=== PATIENT | female | born 1995 | race Caucasian/White ===

== ENCOUNTER 2020-04-20 11:05 | Outpatient (REF) | payer OTHER, SELFPAY | END 2020-04-20 11:06 | disposition home or self-care (01) | LOC: HO.LAB 11:05 | PROVIDERS: PCP Internal Medicine; Visit Provider Internal Medicine | DX: Z20.828 Contact with and (suspected) exposure to other viral communicable diseases (principal) | CPT/HCPCS: 87635 ==

== ENCOUNTER 2021-05-01 08:48 | Outpatient (REF) | payer OTHER, SELFPAY ==
[2021-05-01 10:17] LABS: Anion Gap 12 (12-20); Blood Urea Nitrogen 10 mg/dL (9-16); Calcium 9.9 mg/dL (8.4-10.2); Carbon Dioxide 27 mmol/L (22-29); Chloride 107 mmol/L (96-108); Estimated Glomerular Filt Rate > 60; Glucose Random 82 mg/dL (60-115); Potassium 4.7 mmol/L (3.3-5.1); Sodium 141 mmol/L (135-145)
[2021-05-01 10:41] LABS: Vitamin B12 566 pg/mL (200-900)
[2021-05-01 10:42] LABS: TSH reflex Free T4 0.75 uIU/mL (0.32-4.0)
[2021-05-02 12:42] LABS: DHEA Sulfate 124 mcg/dL (18-391)
[2021-05-05 16:37] LABS: Testosterone, Free 1.4 pg/mL (0.1-6.4); Testosterone, Total 39 ng/dL (2-45)
== END 2021-05-01 08:49 | disposition home or self-care (01) ==
LOC: HO.LAB 08:48
PROVIDERS: PCP Internal Medicine; Visit Provider Internal Medicine
DX: L65.9 Nonscarring hair loss, unspecified (principal); L70.0 Acne vulgaris
CPT/HCPCS: 36415; 80048; 82306; 82607; 82627; 84402; 84403; 84443

== ENCOUNTER 2021-11-08 08:13 | Outpatient (REF) | payer OTHER, SELFPAY ==
--- NOTE | ~2021-11-08 | XR_ITS ---
EXAMINATION: XR WRIST, RIGHT CLINICAL INFORMATION: Right wrist pain COMPARISON: None TECHNIQUE: Four views of the right wrist. FINDINGS: No fracture or dislocation. The carpal rows are well aligned. Joint spaces are maintained. The soft tissues are unremarkable. XR/XR wrist RT min 3V IMPRESSION: Normal right wrist.
== END 2021-11-08 08:14 | disposition home or self-care (01) ==
LOC: HO.XRAY 08:13
PROVIDERS: Absent Provider Internal Medicine; PCP Internal Medicine; Visit Provider Emergency Medicine
DX: M25.531 Pain in right wrist (principal)
CPT/HCPCS: 73110

== ENCOUNTER 2022-08-04 01:40 | Emergency (ER) | payer OTHER, SELFPAY ==
[2022-08-04 01:45] VITALS: BP 131/78; PULSE 81; RESP 16; TEMP 36.8; O2SAT 98; BMI 23.5
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
== END 2022-08-04 02:27 | disposition home or self-care (01) ==
PROVIDERS: Emergency Provider Internal Medicine; PCP Internal Medicine
DX: Z04.2 Encounter for examination and observation following work accident (principal); Z77.21 Contact with and (suspected) exposure to potentially hazardous body fluids
CPT/HCPCS: 99282; 99283

== ENCOUNTER 2022-08-09 13:17 | Outpatient (REF) | payer SELFPAY ==
--- NOTE | ~2022-08-09 | US_ITS ---
EXAMINATION: US DIAGNOSTIC ULTRASOUND BREAST, LEFT CLINICAL INFORMATION: 27-year-old with recent small superficial palpable nodule anterior 12:00 left breast. No prior breast imaging. COMPARISON: None. TECHNIQUE: Ultrasound left breast is performed using grayscale imaging and color Doppler without and with harmonics. Patient is able to point to the area of clinical concern at time of imaging. FINDINGS: The palpable finding anterior 12:00 position corresponds to a tiny 0.2 cm hypoechoic circumscribed intradermal lesion. There is no surrounding hyperemia. No subdermal extension. There is no other cystic or solid mass. No duct ectasia. No edema tracking in soft tissue planes. Results are discussed with the patient at time of visit. US/US breast LT limited IMPRESSION: 1. Tiny intradermal lesion 0.2 cm corresponding to palpable finding, likely sebaceous cyst. 2. No subdermal extension. No hyperemia. ASSESSMENT: BI-RADS 2: Benign RECOMMENDATION: Patient should be managed based on the clinical impression as needed. If persistent increasing, further evaluation may be considered with surgical consult. Decision to proceed with biopsy should be based on clinical grounds and degree of clinical concern. This patient's information was entered into a reminder system with a target due date for their next mammogram.
== END 2022-08-09 13:18 | disposition home or self-care (01) ==
LOC: HO.MAMMO 13:17
PROVIDERS: PCP Internal Medicine; Visit Provider Family Medicine
DX: N63.25 Unspecified lump in the left breast, overlapping quadrants (principal)
CPT/HCPCS: 76642

== ENCOUNTER 2023-03-16 01:44 | Emergency (ER) | payer OTHER, SELFPAY ==
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
[2023-03-16 01:50] VITALS: BP 124/80; BP 132/78; PULSE 82; PULSE 86; RESP 16; TEMP 36.9; O2SAT 100; O2SAT 99; BMI 25.1
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
[2023-03-16] MEDS: Acetaminophen 325 MG TABLET 975 MG PO (02:48)
[2023-03-16 04:13] VITALS: BP 132/76; PULSE 70; RESP 16; TEMP 36.9; O2SAT 100
[2023-03-16] MEDS: Bacitracin Oint 0.9 GM PACKET 1 APPL TOPICAL (05:14)
[2023-03-16] MEDS: Cyclobenzaprine HCl 10 MG TABLET PO (05:14)
--- NOTE | 2023-03-16 05:22 | PC.NURSE ---
Bacitracin applied to left upper arm and wrapped, instructions given on dressing change.
== END 2023-03-16 05:25 | disposition home or self-care (01) ==
PROVIDERS: Emergency Provider Emergency Medicine; PCP Internal Medicine
DX: S86.112A Strain of other muscle(s) and tendon(s) of posterior muscle group at lower leg level, left leg, initial encounter (principal); S50.312A Abrasion of left elbow, initial encounter; V49.49XA Driver injured in collision with other motor vehicles in traffic accident, initial encounter; T22.222A Burn of second degree of left elbow, initial encounter; W22.11XA Striking against or struck by driver side automobile airbag, initial encounter; Y93.89 Activity, other specified; Y92.488 Other paved roadways as the place of occurrence of the external cause; Y99.0 Civilian activity done for income or pay
CPT/HCPCS: 16000; 70450; 72125; 73070; 73560; 99284

== ENCOUNTER → 2023-03-20 08:47 | Outpatient (BNVA) | payer OTHER, SELFPAY | PROVIDERS: PCP Internal Medicine; Visit Provider Physician Assistant | DX: S50.02XA Contusion of left elbow, initial encounter (principal); S51.012A Laceration without foreign body of left elbow, initial encounter; W22.10XA Striking against or struck by unspecified automobile airbag, initial encounter; V98.8XXA Other specified transport accidents, initial encounter; M54.50 Low back pain, unspecified | CPT/HCPCS: 99203 ==

== ENCOUNTER → 2023-03-27 09:24 | Outpatient (BNVA) | payer OTHER, SELFPAY | PROVIDERS: PCP Internal Medicine; Visit Provider Physician Assistant | DX: S50.02XA Contusion of left elbow, initial encounter (principal); S51.012A Laceration without foreign body of left elbow, initial encounter; W22.10XA Striking against or struck by unspecified automobile airbag, initial encounter; V98.8XXA Other specified transport accidents, initial encounter; M54.50 Low back pain, unspecified | CPT/HCPCS: 99213 ==

== ENCOUNTER 2023-05-31 03:41 | Emergency (ER) | payer OTHER, SELFPAY ==
--- NOTE | ~2023-05-31 | XR_ITS ---
EXAMINATION: XR WRIST, RIGHT CLINICAL INFORMATION: Wrist pain COMPARISON: None available. TECHNIQUE: PA, lateral, and oblique views of the right wrist. FINDINGS: No acute fracture or dislocation. XR/XR wrist RT min 3V IMPRESSION: No acute fracture or dislocation right wrist.
[2023-05-31 04:00] VITALS: BP 132/75; PULSE 85; RESP 16; TEMP 37.2; O2SAT 99; BMI 24.6
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
[2023-05-31 07:42] VITALS: BP 139/83; PULSE 84; RESP 18; O2SAT 98
--- NOTE | 2023-05-31 07:42 | PC.NURSE ---
this rn applied wrist immobilize for pt right wrist, pt tolerated procedure well and educated on use.
== END 2023-05-31 07:43 | disposition home or self-care (01) ==
PROVIDERS: Emergency Provider Emergency Medicine
DX: S63.501A Unspecified sprain of right wrist, initial encounter (principal); X58.XXXA Exposure to other specified factors, initial encounter; Y93.9 Activity, unspecified; Y92.9 Unspecified place or not applicable; Y99.0 Civilian activity done for income or pay; Z79.899 Other long term (current) drug therapy
CPT/HCPCS: 29125; 73110; 99283; 99284

== ENCOUNTER → 2023-05-31 09:31 | Outpatient (BNVA) | payer OTHER, SELFPAY | PROVIDERS: Visit Provider Internal Medicine | DX: S63.591A Other specified sprain of right wrist, initial encounter (principal); Y04.0XXA Assault by unarmed brawl or fight, initial encounter | CPT/HCPCS: 99202 ==

== ENCOUNTER → 2023-09-03 09:21 | Outpatient (BNVA) | payer OTHER, SELFPAY | PROVIDERS: Visit Provider Physician Assistant Medical | DX: D17.22 Benign lipomatous neoplasm of skin and subcutaneous tissue of left arm (principal); S50.02XD Contusion of left elbow, subsequent encounter; V89.0XXD Person injured in unspecified motor-vehicle accident, nontraffic, subsequent encounter; W22.10XD Striking against or struck by unspecified automobile airbag, subsequent encounter | CPT/HCPCS: 99203 ==

== ENCOUNTER 2023-09-11 10:09 | Outpatient (REF) | payer OTHER, SELFPAY ==
[2023-09-11 10:27] LABS: MANUAL DIFF FLAG NO
[2023-09-11 10:59] LABS: Basophils Percent Auto 0.3 % (0-2); Eosinophils Percent Auto 0.4 % (0-4); Hematocrit 39.9 % (37.0-47.0); Imm Gran Abs Auto 0.02 X10*3/uL (0.00-0.03); Imm Gran Pct Auto 0.3 % (0.0-0.4); Lymphocytes Absolute Auto 3.7 X10*3/uL (1.2-4.9); Lymphocytes Percent Auto 54.2 % (20-40); Mean Corpuscular HGB Conc 35.1 g/dl (31.0-35.0); Mean Corpuscular Hemoglobin 29.8 pg (27.0-33.0); Mean Corpuscular Volume 84.9 fL (80.0-98.0); Mean Platelet Volume 8.9 fL (9.4-12.3); Monocytes Absolute Auto 0.5 X10*3/uL (0.1-1.2); Neutrophils Absolute Auto 2.5 x10*3/uL (2.0-8.3); Neutrophils Percent Auto 37.8 % (45-73); Platelet Count 326 X10*3/uL (160-400); Red Cell Distribution Width 12.1 % (11.0-16.0); White Blood Count 6.7 X10*3/uL (4.8-10.8)
[2023-09-11 12:01] LABS: HBS Num1 24.98 mIU/mL (0-7.99); HBc Num1 0.08 S/CO (0.00-0.79); HBsAGNum1 0.38 S/CO (0.00-0.99); Hepatitis A Antibody IgM 0.21 Index (0-0.79); Hepatitis B Core Antibody Nonreactive (Nonreactive); Hepatitis B Surface Antigen Negative (Negative); ~Hepatitis A Antibody IgM Nonreactive (Nonreactive); ~Hepatitis B Surface Antibody REACTIVE (Nonreactive); ~Hepatitis C Antibody Nonreactive (Nonreactive)
[2023-09-11 12:06] LABS: Alanine Aminotransferase 17 U/L (0-31); Albumin Level 4.2 g/dL (3.5-5.0); Alkaline Phosphatase 86 U/L (39-117); Anion Gap 13 (12-20); Aspartate Amino Transferase 19 U/L (5-31); Bilirubin Total 0.5 mg/dL (0.0-1.0); Blood Urea Nitrogen 12 mg/dL (9-16); Calcium 9.8 mg/dL (8.4-10.2); Carbon Dioxide 25 mmol/L (22-29); Chloride 106 mmol/L (96-108); Cholesterol 209 mg/dL (<200); Estimated Glomerular Filt Rate > 60; Glucose Random 90 mg/dL (60-115); HDL Cholesterol 83 mg/dL (>40); LDL Cholesterol Calculated 107 mg/dL (<100); Potassium 3.9 mmol/L (3.3-5.1); Sodium 140 mmol/L (135-145); TSH reflex Free T4 0.62 uIU/mL (0.32-4.0); Total Protein 7.6 g/dL (6.5-8.0); Triglycerides 96 mg/dL (<150)
[2023-09-11 12:36] LABS: Reflex LDLD? No
[2023-09-12 22:54] LABS: Rubella IgG Antibody 2.14 Index; Rubeola IgG (Measles) <13.50 AU/mL
[2023-09-14 15:42] LABS: TS Negative Control Passed; TS Panel A 1; TS Panel B 0; TS Positive Control Passed; TSpotTB Negative (Negative)
== END 2023-09-11 10:10 | disposition home or self-care (01) ==
LOC: HO.LAB 10:09
PROVIDERS: PCP Internal Medicine; Visit Provider Internal Medicine
DX: Z00.00 Encounter for general adult medical examination without abnormal findings (principal); Z13.6 Encounter for screening for cardiovascular disorders; H54.7 Unspecified visual loss
CPT/HCPCS: 36415; 80053; 80061; 84443; 85025; 86481; 86704; 86706; 86709; 86735; 86762; 86765; 86803; 87340

== ENCOUNTER → 2023-09-11 10:38 | Outpatient (BNVA) | payer OTHER, SELFPAY | PROVIDERS: PCP Internal Medicine; Visit Provider Physician Assistant Medical | DX: S50.12XA Contusion of left forearm, initial encounter (principal); Y35.391A Legal intervention involving other blunt objects, law enforcement official injured, initial encounter | CPT/HCPCS: 99213; 99215 ==

== ENCOUNTER 2023-09-23 09:21 | Outpatient (AMB) | payer OTHER, SELFPAY ==
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
[2023-09-23 09:32] VITALS: BP 130/58; PULSE 76; BMI 23.5
== END 2023-09-23 09:43 | disposition home or self-care (01) ==
PROVIDERS: PCP Internal Medicine; Referring Provider Physician Assistant Medical; Visit Provider Surgery
DX: D17.9 Benign lipomatous neoplasm, unspecified (principal)
CPT/HCPCS: 99204

== ENCOUNTER → 2023-09-23 09:21 | Outpatient (BNVA) | payer OTHER, SELFPAY | PROVIDERS: PCP Internal Medicine; Referring Provider Internal Medicine; Visit Provider Surgery | DX: D17.22 Benign lipomatous neoplasm of skin and subcutaneous tissue of left arm (principal) | CPT/HCPCS: 99202 ==

== ENCOUNTER → 2023-09-26 10:48 | Outpatient (BNVA) | payer OTHER, SELFPAY | PROVIDERS: PCP Internal Medicine; Visit Provider Physician Assistant Medical | DX: D17.22 Benign lipomatous neoplasm of skin and subcutaneous tissue of left arm (principal) | CPT/HCPCS: 99213 ==

== ENCOUNTER 2024-07-27 | Outpatient (REF) | payer OTHER, SELFPAY ==
--- OUTSIDE RECORDS SUMMARY | 2024-08-21 14:08 | XMS_ITS | Clinical Summary ---
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 Encounters Date Type Department Care Team Description 07/29/2024 Telephone [facility] [address] [place] [phone] Cierra Molina, RN Results 07/27/2024 1:15 PM EST Procedure Visit [facility] 230 [place] [address] Jovanna Aguilar MD Encounter for cervical Pap smear with pelvic exam (Primary Dx); Dyspareunia in female; Encounter for preventive health examination 07/27/2024 Orders Only [facility] [address] [place] [address] Jovanna Aguilar MD 07/27/2024 Travel 07/09/2024 Telephone [facility] 230 [place] [address] Jovanna Aguilar MD August recall from Last 3 Months Immunizations Name Administration [...] Description 09/09/2024 10:30 AM EST Office Visit [facility] [address] [place] [address] Jovanna Aguilar MD [address] [place] [address] [phone] 09/22/2024 12:00 PM EDT Telemedicine [facility] [address] [place] [address] Jovanna Aguilar MD [address] [place] [address] Health Maintenance Due Date Last Done Comments [...] Procedure Name Priority Date/Time Associated Diagnosis Comments US PELVIS TRANSVAGINAL Routine 08/14/2024 11:45 AM EST Dyspareunia in female PAP SMEAR Routine 07/27/2024 2:28 PM EST [...] Recently Relevant to Health Maintenance Results * US Pelvis Transvaginal (08/14/2024 11:45 AM EST) Anatomical Region Laterality Modality Pelvis Ultrasound 08/14/2024 11:4 5 AM EST Narrative 08/14/2024 1:30 PM EST ? [facility] ?[address] ?[place] [address] ? Ultrasound Report ? Signed ? Patient: Lisa Hernandez ?MR#: [id number] ?? 0 ? : 1995 ?Acct:[id number] ? Age/Sex: 29 / F ?ADM Date: 08/14/24 ? Loc: HO.US ? Attending Dr: Jovanna Aguilar MD ? Ordering Physician: Jovanna Aguilar MD ?? Date of Service: 08/14/24 ?? Procedure(s): US pelvic and transvaginal ?? Accession Number(s): [id number] ? cc: Jovanna Aguilar MD ? EXAMINATION: ??US PELVIS TRANSABDOMINAL AND TRANSVAGINAL ? HISTORY: DUB/dyspareunia, r/o fibroid ? COMPARISON: There are no prior studies for comparison. ? TECHNIQUE: ? Transabdominal and endovaginal real-time 2D das-scale ultrasound was ?? performed. ? FINDINGS: ? Uterus: ??The uterus is normal in size, measuring 6.2 x 3.2 x 3.6 cm. ? Myometrium has a normal echotexture. ??No fibroids are identified. There ?? is a tiny calcification in the vaginal wall. ? Endometrium: ??The endometrial stripe measures 4 mm in thickness. ? Right ovary: ??The right ovary measures 2.0 x 0.7 x 1.3 cm. ??The right ?? ovary is normal in size and echotexture. ? Left ovary: ?? The left ovary measures 1.5 x 1.0 x 0.9 cm. ??The left ?? ovary is normal in size and echotexture. ? Pelvic fluid: none. ? US/US pelvic and transvaginal ?? IMPRESSION: ?? Tiny calcification in the vaginal wall. Otherwise unremarkable pelvic ?? ultrasound. ? Electronically signed by: ??Lit Viera MD ??08/14/2024 01:27 PM EST ? Dictated By: ?Lit Viera MD ? Signed By: ?<Electronically signed by Lti Viera MD in OV> ?08/14/24 1327 ? DD/ 1145 ? TD/TT: 08/14/24 1211 ? Wholesale Representative: ? Procedure Note Donzahida, Image - 08/14/2024 [place] [address] Ultrasound Report Signed Patient: Lisa HernandezMR#: [id number] 0 : 1995Acct:[id number] Age/Sex: 29 / FADM Date: 08/14/24 Loc: HO.US Attending Dr: Jovanna Aguilar MD Ordering Physician: Jovanna Aguilar MD Date of Service: 08/14/24 Procedure(s): US pelvic and transvaginal Accession Number(s): [id number] cc: Jovanna Aguilar MD EXAMINATION: US PELVIS TRANSABDOMINAL AND TRANSVAGINAL HISTORY: DUB/dyspareunia, r/o fibroid COMPARISON: There are no prior studies for comparison. TECHNIQUE: Transabdominal and endovaginal real-time 2D das-scale ultrasound was performed. FINDINGS: Uterus: The uterus is normal in size, measuring 6.2 x 3.2 x 3.6 cm. Myometrium has a normal echotexture. No fibroids are identified. There is a tiny calcification in the vaginal wall. Endometrium: The endometrial stripe measures 4 mm in thickness. Right ovary: The right ovary measures 2.0 x 0.7 x 1.3 cm. The right ovary is normal in size and echotexture. Left ovary: The left ovary measures 1.5 x 1.0 x 0.9 cm. The left ovary is normal in size and echotexture. Pelvic fluid: none. US/US pelvic and transvaginal IMPRESSION: Tiny calcification in the vaginal wall. Otherwise unremarkable pelvic ultrasound. Electronically signed by: Lit Viera MD 08/14/2024 01:27 PM EST Dictated By: Lit Viera MD Signed By: <Electronically signed by Lit Viera MD in OV> 08/14/24 1327 DD/ 1145 TD/TT: 08/14/24 1211 Wholesale Representative: us Jovanna Aguilar MD IMG US PROCEDURES Final Result * (ABNORMAL) Bacterial Vaginosis (07/27/2024 2:28 PM EST) TRICHOMONAS VAGINALIS DETECTION BY PCR NOT DETECTED Not Detect [facility] BACTERIAL VAGINOSIS DETECTION BY PCR NEGATIVE Negative [facility] Comment:The BV organism targ ets [...] GROUP DETECTION BY PCR DETECTED(A) Not Detect [facility] Katherin glab krusei PCR NOT DETECTED Not Detect [facility] 07/27/2024 2:28 PM EST 07/27/2024 4:22 PM EST Jovanna Aguilar MD LAB MICROBIOLOGY - GENER AL ORDERABLES Final Result [facility] [address] [place] [address] [phone] * Chlamydia/N. Gonorrhoeae RNA, TMA, Urogenitial (07/27/2024 2:28 PM EST) CT PCR NOT DETECTED Not Detect. [facility] Comment:A not detected test result [...] psychologicalconsequences. NG PCR NOT DETECTED Not Detect. [facility] Comment:A not detected test result [...] PM EST 07/27/2024 4:22 PM EST Narrative [facility] - 07/28/2024 5:55 AM EST Vaginal Jovanna Aguilar MD LAB MICROBIOLOGY - GENER AL ORDERABLES Final Result [facility] [address] [place] [address] [phone] * Pap Smear (07/27/2024 2:28 PM EST) Swab Cervical swab / Unknown 07/27/2024 2:28 PM EST 07/28/2024 11:20 AM EST [facility] - 08/03/2024 10:18 AM EST ----- ------- Name: Lisa Hernandez ?Age/Sex: 29/F ? : 1995 Unit#: [id number] ?? Attend Dr: ?Re07/27/24 ?Status: PRE REF ? Location: HO.LNP ?Disch: ? ----- ------- SPEC : [id number] ?RECD: 07/28/24 ? STATUS: ??SOUT ? REQ NUM: [id number] ? DIANDRA: 07/27/24 ? SUBM DR: Jovanna Aguilar MD ? ENTERED: ??07/28/24 ?SP TYPE: Pap Smr ?OTHR : ? ORDERED: ??Pap Smear ? Interpretation ?? Satisfactory for evaluation. ?? Negative for intraepithelial lesion or malignancy. ? HPV High Risk: ??Negative ? HPV Genotyping 16: ??Negative ?? HPV Genotyping 18: ??Negative ?Clinical Information LMP: 07/21/2024 Previous PAP test: Unknown date/findings ? Material Received ?? ThinPrep-Cervical ----- ------- Signed (signature on file) KIRIT Fuentes ([facility]) 08/03/24 1018 ? ----- ------- ? END OF REPORT ? us Jovanna Aguilar MD LAB CYTOLOGY ORDERABLES Final Result Performing Organization Address [facility] de Phone Number [facility] [address] [place] [phone] * Hepatitis Panel, General (09/11/2023 10:25 AM EST) Hepatitis A IgM Nonreactive Nonreactive [facility] Comment:IgM antibodies to GIVENS V not detected; does not exclude earlyacute or recovered HAV infection. ~Hepatitis B Surface Antibody REACTIVE Nonreactive [facility] Comment:REACTIVE: > 11.99 mI U/mL Hepatitis B Core Antibody Nonreactive Nonreactive [facility] Hepatitis C Antibody Nonreactive Nonreactive [facility] Comment:Antibodies to HCV no t detected; does not exclude early acuteHCV infection. Hepatitis B Surface Ag Negative Negative [facility] Blood 09/11/2023 10:2 5 AM EST 09/11/2023 10:25 AM EST Jovanna Aguilar MD LAB BLOOD ORDERABLES Fin al Result Performing Organization Address [facility] Co de Phone Number [facility] [address] [place] [address] [phone] from Last 3 Months or Most Recently Relevant to Health Maintenance Insurance [facility] , [address] [place] [address] Care Teams Yard Supervisor Cotton Gin Relationship Specialty Start Date End Date Jovanna Aguilar MD [address] [place] [phone] PCP - General Family Medicine 06/25/16
--- OUTSIDE RECORDS SUMMARY | 2024-08-21 14:08 | XMS_ITS | Encounter Summary ---
Author Organization [employer] Address [address] [facility] 7t [place] [address] Care Team Providers Care Filter Bed Placer Name Role Phone Jovanna Aguilar MD Primary Care Provider + Reason for Visit * Reason Onset Date Comments Results 07/29/2024 Encounter Details Date Type Department Care Team (Late st Contact Info) Description 07/29/2024 Telephone [facility] [address] [place] [address] Cierra Molina, RN [address] [place] [address] Results Social History Tobacco Use Types Packs/Day [...] 8:47 AM EST TC placed to patient [phone] in regards to below message. Patient verbalized [...] 10:30 AM EST Office Visit [facility] [address] [place] [phone] Jovanna Aguilar MD [address] [place] [phone] 09/22/2024 12:00 PM EDT Telemedicine [address] [address] Jovanna Aguilar MD [address] [place] [phone] documented as of this encounter Visit Diagnoses Not on filedocumented in this encounter Care Teams Filter Bed Placer Relationship Specialty Start Date End Date Jovanna Aguilar MD [address] [place] [address] [phone] PCP - General Family Medicine 06/25/16 documented as of this encounter
--- OUTSIDE RECORDS SUMMARY | 2024-08-21 14:08 | XMS_ITS | Encounter Summary ---
Author Organization [employer] Address [address] [facility] 7t [place] [address] Care Team Providers Care Telecommunication Engineer Name Role Phone Jovanna Aguilar MD Primary Care Provider + Encounter Details Date Type Department Care Team (Late st Contact Info) Description 07/27/2024 Orders Only [facility] [address] [place], [place] [phone] Jovanna Aguilar MD 230 [place], [place] [phone] Social History Tobacco Use Types Packs/Day Years [...] Description 09/09/2024 10:30 AM EST Office Visit [facility] [address] [place] [address] [phone] Jovanna Aguilar MD [address] [place] [address] 09/22/2024 12:00 PM EDT Telemedicine [address] [address] Jovanna Aguilar MD [address] [place] [phone] documented as of this encounter Procedures Procedure Name Priority Date/Time Associated Diagnosis Comments BACTERIAL VAGINOSIS PANEL Routine 07/27/2024 2:28 PM EST documented in this encounter Results * (ABNORMAL) Bacterial Vaginosis (07/27/2024 2:28 PM EST) TRICHOMONAS VAGINALIS DETECTION BY PCR NOT DETECTED Not Detect [facility] BACTERIAL VAGINOSIS DETECTION BY PCR NEGATIVE Negative [facility] Comment:The BV organism targ ets of [...] GROUP DETECTION BY PCR DETECTED(A) Not Detect [facility] Katherin glab krusei PCR NOT DETECTED Not Detect [facility] 07/27/2024 2:28 PM EST 07/27/2024 4:22 PM EST us Jovanna Aguilar MD LAB MICROBIOLOGY - GENER AL ORDERABLES Final Result [facility] [address] [place] [phone] documented in this encounter Visit Diagnoses Not on filedocumented in this encounter Care Teams Telecommunication Engineer Relationship Specialty Start Date End Date Jovanna Aguilar MD [address] [place] [phone] PCP - General Family Medicine 06/25/16 documented as of this encounter
--- OUTSIDE RECORDS SUMMARY | 2024-08-21 14:08 | XMS_ITS | Encounter Summary ---
Author Organization [email or web address] Address [address] [facility] 7t [place] [address] Care Team Providers Care Barrel Brander Name Role Phone Jovanna Aguilar MD Primary [...] Description 09/09/2024 10:30 AM EST Office Visit [address] [address] Jovanna Aguilar MD [address] [place] [address] [phone] 09/22/2024 12:00 PM EDT Telemedicine [address] [phone] Jovanna Aguilar MD 230 [place], [place] [phone] documented as of this encounter Visit Diagnoses Not on filedocumented in this encounter Care Teams Barrel Brander Relationship Specialty Start Date End Date Jovanna Aguilar MD [address] [place] [address] [phone] PCP - General Family Medicine 06/25/16 documented as of this encounter
--- OUTSIDE RECORDS SUMMARY | 2024-08-21 14:09 | XMS_ITS | Encounter Summary ---
Author Organization [employer] [facility] Address [address] [facility] 7t [place] [address] Care Team Providers Care Warehouse Order Selector Name Role Phone Jovanna Aguilar MD Primary Care Provider + Reason for Referral * Imaging (Routine) - Closed Specialty Diagnoses / Procedures Referred By Contac t Referred To Contact Radiology Diagnoses Dyspareunia in female Procedures US Pelvis Transvaginal Jovanna Aguilar MD [address] [place] [address] Phone: tel: fax: [address] Phone: tel: fax: Referral ID Status Reason Start Date Expiration Date Visits Re quested Visits Authorized [id number] Closed 07/27/2024 07/27/2025 1 1 * Imaging (Routine) - Closed Specialty Diagnoses / Procedures Referred By Contac t Referred To Contact Radiology Diagnoses Dyspareunia in female Procedures Us Pelvis complete Jovanna Aguilar MD [address] [place] [address] Phone: tel: fax: [address] Phone: tel: fax: Referral ID Status Reason Start Date Expiration Date Visits Re quested Visits Authorized [id number] Closed 07/27/2024 07/27/2025 1 1 Reason for Visit * Reason Comments Gynecologic Exam Encounter Details Date Type Department Care Team (Latest Contact Info) Description 07/27/2024 1:15 PM EST Procedure Visit [facility] 230 [place], [place] [phone] Jovanna Aguilar MD [address] [place] [address] Encounter for cervical Pap smear with pelvic [...] Patient mentions she is currently attending the Physician[employer] and finishes in April. She thinks that [...] m) Physical Exam Exam conducted with a business development associate present (Marjorie Snowden MA). HENT: Right Ear: [...] videos and all your education online visit, [email or web address] or scan this QR code with your smartphone. Access to this content will in one year. Human Papillomavirus (HPV) Vaccine Injection What is this medication? HUMAN PAPILLOMAVIRUS VACCINE (HYOO muhn pap DM[facility]RIY [facility] SEEN) reduces the risk [...] may report side effects to FDA at 7-945-ICB-8666. Where should I keep my medication? This vaccine is only given by your care team. It will not be stored at home. NOTE: This sheet is a summary. It may not cover all possible information. If you have questions about this medicine, talk to your doctor, pharmacist, or health care provider. ? 2023 [employer]/Gold Standard (2022-12-12) * Patient Education Note - Jovanna Aguilar MD - 07/27/2024 6:41 PM EST Images from the original note were not included. Patient Education Table of Contents HPV and Cancer Information To view videos and all your education online visit, [email or web address] or scan this QR code with your [...] Disease Control and Prevention: cdc.gov National Cancer [place]: cancer.gov [place] Cancer Society: cancer.org This information is not intended to replace advice given to you by your health care provider. Make sure you discuss any questions you have with your health care provider. Document Released: 2017-03-21 Document Updated: 2023-04-19 Document Reviewed: 2023-03-08 Elsevier Patient Education ? 2023 [employer]. * Assessment & Plan Note - [...] one will be due in 5 years. * Result Encounter Note - Jovanna Aguilar MD - 07/27/2024 1:15 PM EST Pelvic US showed calcification on vaginal wall, I will address this issue at upcoming apt documented in this encounter Plan of Treatment Upcoming Encounters Date Type Department Care Team (Late st Contact Info) Description 09/09/2024 10:30 AM EST Office Visit [facility] [address] [place] [address] Jovanna Aguilar MD [address] [place] [address] 09/22/2024 12:00 PM EDT Telemedicine [facility] [address] [place] [address] Jovanna Aguilar MD [address] [place] [address] Scheduled Orders Name Type Priority Associated Diagnoses Order Schedule Bacterial Vaginosis Microbiology Routine Encounter for cervical Pap smear with pelvic exam Expected: 07/27/2024 (Approximate), Expires: 07/27/2025 POCT Glucose Point of Care Testing Routine Encounter for cervical Pap smear with pelvic exam Ordered: 07/27/2024 Us Pelvis complete Imaging Routine Dyspareunia in female Expected: 07/27/2024 (Approximate), Expires: 07/27/2025 HPV High Risk with Reflex to Subtypes Lab Routine Encounter for cervical Pap smear with pelvic exam Ordered: 07/27/2024 documented as of this encounter Procedures Procedure Name Priority Date/Time Associated Diagnosis Comments US PELVIS TRANSVAGINAL Routine 08/14/2024 11:45 AM EST Dyspareunia in female CHLAMYDIA/N. GONORRHOEAE RNA, TMA, UROGENITAL Routine 07/27/2024 2:28 PM EST Encounter for cervical Pap smear with pelvic exam PAP SMEAR Routine 07/27/2024 2:28 PM EST Encounter for cervical Pap smear with pelvic exam documented in this encounter Results * US Pelvis Transvaginal (08/14/2024 11:45 AM EST) Anatomical Region Laterality Modality Pelvis Ultrasound 08/14/2024 11:4 5 AM EST Narrative 08/14/2024 1:30 PM EST ? [facility] ?[address] ?[place] [address] ? Ultrasound Report ? Signed ? Patient: Mary,Lisa ?MR#: [id number] ?? 0 ? : 1995 ?Acct:[id number] ? Age/Sex: 29 / F ?ADM Date: 01/31/25 ? Loc: HO.US ? Attending Dr: Jovanna Aguilar MD ? Ordering Physician: Jovanna Aguilar MD ?? Date of Service: 08/14/24 ?? Procedure(s): US pelvic and transvaginal ?? Accession Number(s): [id number] ? cc: Jovanna Aguilar MD ? EXAMINATION: [...] ??Lit Viera MD ??08/14/2024 01:27 PM EST ?? RP ? Dictated By: ?Lit Viera MD ? Signed By: ?<Electronically signed by Lit Viera MD in OV> ?08/14/24 1327 ? DD/ 1145 ? TD/TT: 08/14/24 1211 ? Packager Machine: ? Procedure Note Pedro, Anny - 08/14/[address] [address] Ultrasound Report Signed Patient: Lisa Hernandez#: [id number] 0 : 1995Acct:[id number] Age/Sex: 29 / FADM Date: 08/14/24 Loc: HO.US Attending Dr: Jovanna Aguilar MD Ordering Physician: Jovanna Aguilar MD Date of Service: 08/14/24 Procedure(s): US pelvic and transvaginal Accession Number(s): [id number] cc: Jovanna Aguilar MD EXAMINATION: US PELVIS [...] Lit Viera MD 08/14/2024 01:27 PM EST RP Dictated By: Lit Viera MD Signed By: <Electronically signed by Lit Viera MD in OV> 08/14/24 1327 DD/ 1145 TD/TT: 08/14/24 1211 Packager Machine: us Jovanna Aguilar MD IMG US PROCEDURES Final Result * Pap Smear (07/27/2024 2:28 PM EST) Swab Cervical swab / Unknown 07/27/2024 2:28 PM EST 07/28/2024 11:20 AM EST Narrative [facility] - 08/03/2024 10:18 AM EST ----- ------- Name: Lisa Hernandez ?Age/Sex: 29/F ? : 1995 Unit#: [id number] ?? Attend Dr: ?Re07/27/24 ?Status: PRE REF ? Location: HO.LNP ?Disch: ? ----- ------- SPEC : [id number] ?RECD: 07/28/24-1119 ? STATUS: ??SOUT ? REQ NUM: [id number] ? DIANDRA: 07/27/24-5400 ? SUBM DR: Jovanna Aguilar MD ? ENTERED: ??07/28/24-1131 ?SP TYPE: Pap Smr ?OTHR : ? [...] ----- ------- ? END OF REPORT ? Jovanna Aguilar MD LAB CYTOLOGY ORDERABLES Final Result [facility] [address] [place] [address] [phone] * Chlamydia/N. Gonorrhoeae RNA, TMA, Urogenitial (07/27/2024 2:28 PM EST) CT PCR NOT DETECTED Not Detect. [facility] Comment:A not detected test result [...] psychologicalconsequences. NG PCR NOT DETECTED Not Detect. [facility] Comment:A not detected test result [...] PM EST 07/27/2024 4:22 PM EST Narrative [facility] - 07/28/2024 5:55 AM EST Vaginal Jovanna Aguilar MD LAB MICROBIOLOGY - GENER AL ORDERABLES Final Result [facility] [address] [place] [address] [phone] documented in this encounter Visit Diagnoses Diagnosis Encounter for cervical Pap smear with pelvic exam- Primary Dyspareunia in female Encounter for preventive health examination documented in this encounter Care Teams Warehouse Order Selector Relationship Specialty Start Date End Date Jovanna Aguilar MD [address] [place] [phone] PCP - General Family Medicine 06/25/16 documented as of this encounter
--- OUTSIDE RECORDS SUMMARY | 2024-08-21 14:09 | XMS_ITS | Encounter Summary ---
Author Organization [employer] [facility] Address [address] [facility] [address] [place] [address] Care Team Providers Care Sustainability Purchasing Agent Name Role Phone Jovanna Aguilar MD Primary Care Provider + Reason for Visit * Reason Comments Med Refill Encounter Details Date Type Department Care Team (Late st Contact Info) Description 08/08/2022 Refill [facility] [address] [place] [address] [phone] Jovanna Aguilar MD [address] [place], [place] [phone] Encounter for surveillance of other contraceptive Social [...] Description 09/09/2024 10:30 AM EST Office Visit [facility] [address] [place] [address] [phone] Jovanna Aguilar MD [address] [place], [place] [phone] 09/22/2024 12:00 PM EDT Telemedicine [facility] [address] [place] [phone] Jovanna Aguilar MD [address] [place] [address] documented as of this encounter Visit Diagnoses Diagnosis Encounter for surveillance of other contraceptive documented in this encounter Care Teams Sustainability Purchasing Agent Relationship Specialty Start Date End Date Jovanna Aguilar MD [address] [place] [address] PCP - General Family Medicine 06/25/16 documented as of this encounter
--- OUTSIDE RECORDS SUMMARY | 2024-08-21 14:09 | XMS_ITS | Encounter Summary ---
Author Organization [employer] Address [address] [facility] [address] [address] Care Team Providers Care Deputy Commissioner Name Role Phone Jovanna Aguilar MD Primary Care Provider + Reason for Visit * Reason Onset Date Comments Appointment Request 05/12/2024 Encounter Details Date Type Department Care Team (Late st Contact Info) Description 05/12/2024 Telephone [facility] [address] [place], [place] [phone] Jovanna Aguilar MD [address] [place], [place] [phone] Appointment Request Social History Tobacco Use Types [...] pt requesting to reschedule pap smear but publicity writer found nothing availability. Please contact pt at [phone]. documented in this encounter Plan of Treatment Upcoming Encounters Date Type Department Care Team (Late st Contact Info) Description 09/09/2024 10:30 AM EST Office Visit [facility] [address] [place] [phone] Jovanna Aguilar MD [address] [place] [phone] 09/22/2024 12:00 PM EDT Telemedicine [facility] [address] [place] [address] Jovanna Aguilar MD [address] [place] [address] documented as of this encounter Visit Diagnoses Not on filedocumented in this encounter Care Teams Deputy Commissioner Relationship Specialty Start Date End Date Jovanna Aguilar MD [address] [place] [phone] PCP - General Family Medicine 06/25/16 documented as of this encounter
--- OUTSIDE RECORDS SUMMARY | 2024-08-21 14:09 | XMS_ITS | Encounter Summary ---
Author Organization [employer] Address [address] [facility] [address] [place] [address] Care Team Providers Care Spanish Interpreter/Translator Name Role Phone Jovanna Aguilar MD Primary Care Provider + Reason for Visit * Reason Onset Date Comments Med Refill 07/09/2023 Encounter Details Date Type Department Care Team (Late st Contact Info) Description 07/09/2023 Telephone [facility] [address] [place], [place] [phone] Jovanna Aguilar MD [address] [place] [address] Med Refill Social History Tobacco Use Types [...] 3-0.02 MG tablet To be sent to: [id number] [place], [place] - [address] [facility] documented in this encounter Plan of Treatment Upcoming Encounters Date Type Department Care Team (Late st Contact Info) Description 09/09/2024 10:30 AM EST Office Visit [facility] [address] [place] [phone] Jovanna Aguilar MD [address] [place] [address] 09/22/2024 12:00 PM EDT Telemedicine [facility] [address] [place] [address] [phone] Jovanna Aguilar MD [address] [place] [address] documented as of this encounter Visit Diagnoses Not on filedocumented in this encounter Care Teams Spanish Interpreter/Translator Relationship Specialty Start Date End Date Jovanna Aguilar MD [address] [place] [address] PCP - General Family Medicine 06/25/16 documented as of this encounter
== END 2024-07-27 00:01 | disposition home or self-care (01) ==
LOC: HO.LNP
PROVIDERS: Visit Provider Internal Medicine
DX: Z01.419 Encounter for gynecological examination (general) (routine) without abnormal findings (principal)
CPT/HCPCS: 88175

== ENCOUNTER 2024-07-27 16:14 | Outpatient (REF) | payer OTHER, SELFPAY ==
[2024-07-27 16:18] LABS: HPV 16,18/45 See PAP report
[2024-07-28 05:55] LABS: CT PCR NOT DETECTED (Not Detect.); NG PCR NOT DETECTED (Not Detect.)
[2024-07-28 13:06] LABS: Bacterial Vaginosis PCR NEGATIVE (Negative); Candida Group PCR DETECTED (Not Detect); Candida glab krusei PCR NOT DETECTED (Not Detect); Trichomonas vaginalis PCR NOT DETECTED (Not Detect)
== END 2024-07-27 16:15 | disposition home or self-care (01) ==
LOC: HO.LNP 16:14
PROVIDERS: Visit Provider Internal Medicine
DX: Z01.419 Encounter for gynecological examination (general) (routine) without abnormal findings (principal); Z11.51 Encounter for screening for human papillomavirus (HPV); Z11.3 Encounter for screening for infections with a predominantly sexual mode of transmission
CPT/HCPCS: 81515; 87491; 87591; 87626

== ENCOUNTER 2024-08-14 11:22 | Outpatient (REF) | payer OTHER, SELFPAY ==
--- NOTE | ~2024-08-14 | US_ITS ---
EXAMINATION: US PELVIS TRANSABDOMINAL AND TRANSVAGINAL HISTORY: DUB/dyspareunia, r/o fibroid COMPARISON: There are no prior studies for comparison. TECHNIQUE: Transabdominal and endovaginal real-time 2D das-scale ultrasound was performed. FINDINGS: Uterus: The uterus is normal in size, measuring 6.2 x 3.2 x 3.6 cm. Myometrium has a normal echotexture. No fibroids are identified. There is a tiny calcification in the vaginal wall. Endometrium: The endometrial stripe measures 4 mm in thickness. Right ovary: The right ovary measures 2.0 x 0.7 x 1.3 cm. The right ovary is normal in size and echotexture. Left ovary: The left ovary measures 1.5 x 1.0 x 0.9 cm. The left ovary is normal in size and echotexture. Pelvic fluid: none. US/US pelvic and transvaginal IMPRESSION: Tiny calcification in the vaginal wall. Otherwise unremarkable pelvic ultrasound. Electronically signed by: Lit Viera MD 08/14/2024 01:27 PM [facility]
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
--- OUTSIDE RECORDS SUMMARY | 2024-08-14 12:08 | XMS_ITS | Encounter Summary ---
Author Organization [employer] Address 75 [facility] [address] [place] [address] Care Team Providers Care Lining Layer Name Role Phone Jovanna Aguilar MD Primary Care Provider + Reason for Visit * Reason Onset Date Comments Appointment Request 05/12/2024 Encounter Details Date Type Department Care Team (Late st Contact Info) Description 05/12/2024 Telephone [facility] [address] [place], [place] [phone] Jovanna Aguilar MD [address] [place], [place] [phone] Appointment Request Social History Tobacco Use Types Packs/Day Years Used Date Smoking Tobacco: Never Smokeless Tobacco: Never Alcohol Use Standard Drinks/Week Comments Never 0 [...] Patient Health Questionnaire-2 Score 0 09/09/2023 Comments Unknown Sex and Gender Information Value Date Recorded Sex Assigned at Female 05/14/2022 10:16 AM EDT Legal Sex Female 10:16 AM EDT Gender Identity Female 05/14/2022 10:16 AM EDT Sexual Orientation Bisexual 05/14/2022 10 :16 AM EDT documented as of this encounter Miscellaneous Notes * Telephone Encounter - Norman Roa - 05/12/2024 3:21 PM EDT Tc from pt requesting to reschedule pap smear but lead technical writer found nothing availability. Please contact pt at [phone]. documented in this encounter Plan of Treatment Upcoming Encounters Date Type Department Care Team (Late st Contact Info) Description 09/09/2024 10:30 AM EST Office Visit [facility] [address] [place] [phone] Jovanna Aguilar MD [address] [place] [phone] 09/22/2024 12:00 PM EDT Telemedicine [facility] [address] [place] [phone] Jovanna Aguilar MD [address] [place] [phone] documented as of this encounter Visit Diagnoses Not on filedocumented in this encounter Care Teams Lining Layer Relationship Specialty Start Date End Date Jovanna Aguilar MD [address] [place] [phone] PCP - General Family Medicine 06/25/16 documented as of this encounter
--- OUTSIDE RECORDS SUMMARY | 2024-08-14 12:08 | XMS_ITS | Encounter Summary ---
Author Organization [facility] Address 75 [facility] [address] [place] [address] Care Team Providers Care Blind Escort Name Role Phone Jovanna Aguilar MD Primary Care Provider + Reason for Visit * Reason Comments Med Refill Encounter Details Date Type Department Care Team (Late st Contact Info) Description 08/08/2022 Refill [facility] [address] [place] [address] [phone] Jovanna Aguilar MD [address] [place], [place] [phone] Encounter for surveillance of other contraceptive Social History Tobacco Use Types Packs/Day Years Used Date Smoking Tobacco: Never Smokeless Tobacco: Never Comments Unknown Sex and Gender Information Value Date Recorded Sex Assigned at Female 05/14/2022 10:16 AM EDT Legal Sex Female 10:16 AM EDT Gender Identity Female 05/14/2022 10:16 AM EDT Sexual Orientation Bisexual 05/14/2022 10 :16 AM EDT COVID-19 Exposure Response Date Recorded In the last 10 days, have yo u been in contact with someone who was confirmed or suspected to have Coronavirus/COVID-19? No / Unsure 08/02/2022 12:34 PM EST documented as of this encounter Plan of Treatment Upcoming Encounters Date Type Department Care Team (Late st Contact Info) Description 09/09/2024 10:30 AM EST Office Visit [facility] [address] [place] [address] [phone] Jovanna Aguilar MD [address] [place], [place] [phone] 09/22/2024 12:00 PM EDT Telemedicine [facility] [address] [place] [phone] Jovanna Aguilar MD [address] [place] [address] documented as of this encounter Visit Diagnoses Diagnosis Encounter for surveillance of other contraceptive documented in this encounter Care Teams Blind Escort Relationship Specialty Start Date End Date Jovanna Aguilar MD [address] [place] [phone] PCP - General Family Medicine 06/25/16 documented as of this encounter
--- OUTSIDE RECORDS SUMMARY | 2024-08-14 12:08 | XMS_ITS | Encounter Summary ---
Author Organization [employer] Address 75 [facility] [address]t [place] [address] Care Team Providers Care Sample Maker Hand Name Role Phone Jovanna Aguilar MD Primary Care Provider + Encounter Details Date Type Department Care Team (Late st Contact Info) Description 07/27/2024 Orders Only [facility] [address] [place], [place] [phone] Jovanna Aguilar MD [address] [place], [place] [phone] Social History Tobacco Use Types Packs/Day Years [...] as of this encounter Miscellaneous Notes * Result Encounter Note - Jovanna Aguilar MD - 07/27/2024 11:59 PM EST Vaginal swab on 07/27 showed vaginal candidiasis. Please call patient and tell her that she has yeast infection which is sometimes common during episodes of stress (which she went thru). Tell her thatI will give her rx diflucan x 1 specially as it may be responsible for some of the pain that she has with intercourse, tell her that IT IS NOT a sexually transmitted disease (yeasts normally live on the perineal area and sometimes may pop up in greater numbers ) so her partner doesn't need to be treated. The rest of vaginal swab was normal, PAP results are pending. documented in this encounter Plan of Treatment Upcoming Encounters Date Type Department Care Team (Late st Contact Info) Description 09/09/2024 10:30 AM EST Office Visit [facility] [address] [place] [address] [phone] Jovanna Aguilar MD [address] [place] [phone] 09/22/2024 12:00 PM EDT Telemedicine [address] [phone] Jovanna Aguilar MD [address] [place] [phone] documented as of this encounter Procedures Procedure Name Priority Date/Time Associated Diagnosis Comments BACTERIAL VAGINOSIS PANEL Routine 07/27/2024 2:28 PM EST documented in this encounter Results * (ABNORMAL) Bacterial Vaginosis (07/27/2024 2:28 PM EST) TRICHOMONAS VAGINALIS DETECTION BY PCR NOT DETECTED Not Detect [facility] BACTERIAL VAGINOSIS DETECTION BY PCR NEGATIVE Negative [facility] Comment:The BV organism targ ets of [...] GROUP DETECTION BY PCR DETECTED(A) Not Detect [facility] Katherin glab krusei PCR NOT DETECTED Not Detect [facility] 07/27/2024 2:28 PM EST 07/27/2024 4:22 PM EST us Jovanna Aguilar MD LAB MICROBIOLOGY - GENER AL ORDERABLES Final Result [facility] [address] [place] [phone] documented in this encounter Visit Diagnoses Not on filedocumented in this encounter Care Teams Sample Maker Hand Relationship Specialty Start Date End Date Jovanna Aguilar MD [address] [place] [phone] PCP - General Family Medicine 06/25/16 documented as of this encounter
--- OUTSIDE RECORDS SUMMARY | 2024-08-14 12:08 | XMS_ITS | Encounter Summary ---
Author Organization [facility] [facility] Address [address] [place] [address] Care Team Providers Care Lunch Truck Driver Name Role Phone Jovanna Aguilar MD Primary Care Provider + Reason for Referral * Imaging (Routine) - Authorized Specialty Diagnoses / Procedures Referred By Contac t Referred To Contact Radiology Diagnoses Dyspareunia in female Procedures US Pelvis Transvaginal Jovanna Aguilar MD [address] [place] [phone] Phone: tel: fax: [address] Phone: tel: fax: Referral ID Status Reason Start Date Expiration Date V isits Requested Visits Authorized [id number] Authorized 07/27/2024 07/27/2025 1 1 * Imaging (Routine) - Authorized Specialty Diagnoses / Procedures Referred By Contac t Referred To Contact Radiology Diagnoses Dyspareunia in female Procedures Us Pelvis complete Jovanna Aguilar MD [address] [place] [address] Phone: tel: fax: [address] Phone: tel: fax: Referral ID Status Reason Start Date Expiration Date V isits Requested Visits Authorized [id number] Authorized 07/27/2024 07/27/2025 1 1 Reason for Visit * Reason Comments Gynecologic Exam Encounter Details Date Type Department Care Team (Latest Contact Info) Description 07/27/2024 1:15 PM EST Procedure Visit [facility] [address] [place], [place] [phone] Jovanna Aguilar MD [address] [place] [address] Encounter for cervical Pap smear with pelvic exam (Primary Dx); Dyspareunia in female; Encounter for preventive health examination Social History Tobacco Use Types Packs/Day Years Used Date Smoking Tobacco: Never Smokeless Tobacco: Never Tobacco Cessation:Counseling Given: Not Answered Alcohol Use Standard Drinks/Week Comments Never 0 (1 standard drink = 0.6 oz pur e alcohol) Housing Stability Answer Date Recorded What is your housing situation today? I have diana elen 08/28/[address] you li [...] AM EDT documented as of this encounter Last Filed Vital Signs Vital Sign Reading Time Taken Comments Blood Pressure 113/66 07/27/2024 2:01 PM EST Pulse 78 07/27/2024 1:16 PM EST Temperature 36.2 ??C (97.1 ??F) 07/27/2024 1:16 PM ES T Respiratory Rate 12 07/27/2024 1:16 PM EST Oxygen Saturation - - Inhaled Oxygen Concentration - - Weight 67.3 kg (148 lb 6 oz) 07/27/2024 1:16 PM EST Height 170.2 cm (5' 7 ) 07/27/2024 1:16 PM EST Body Mass Index 23.24 07/27/2024 1:16 PM EST documented in this encounter Progress Notes * Jovanna Aguilar MD - 07/27/2024 1:15 PM EST SUBJECTIVE: Lisa Hernandez is a 29 y.o. year old female who presents for PAP . Denies recent illness, injury, orhospitalization. Last Pap Smear 2020 showed NIL. LMP 07/16/2024. She noticed the bleeding was less and darker than usual. 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 She comments it was not until recently that her period is back on track. Patients has AMAB partner and uses OCP for control. Patient mentions she bleeds s/p-intercourse sometimes within the oast 1-2m. She has no history or family history of Breast Cancer. Patient denies smoking. Acute Concerns: Social History Social History Narrative Not on file Patient Active Problem List Diagnosis Visual impairment Vaginal discharge Slow transit constipation Lightheadedness Loss of hair Disorder of scalp Comedonal acne Acne vulgaris Encounter for preventive health examination Lactose intolerance Scar or fibrosis of skin due to burn Not immune to measles Encounter for cervical Pap smear with pelvic exam Dyspareunia in female No family history on file. Review of Systems Constitutional: Negative for chills, fatigue and fever. HENT: Negative for congestion, ear pain, nosebleeds, rhinorrhea, sinus pressure, sore throat and trouble swallowing. Eyes: Negative for pain and discharge. Respiratory: Negative for cough, chest tightness and shortness of breath. Cardiovascular: Negative for chest pain, palpitations and leg swelling. Gastrointestinal: Negative for abdominal pain, blood in stool, constipation, diarrhea and nausea. Endocrine: Negative for polydipsia and polyuria. Genitourinary: Positive for dyspareunia. Negative for dysuria, frequency, genital sores, pelvic pain and vaginal discharge. Musculoskeletal: Negative for back pain and neck pain. Skin: Negative for rash. Allergic/Immunologic: Negative for environmental allergies. Neurological: Negative for dizziness, seizures, weakness, light-headedness and headaches. Hematological: Negative for adenopathy. Psychiatric/Behavioral: Negative for agitation, behavioral problems, self-injury and suicidal ideas. OBJECTIVE: Vitals: 07/27/24 1316 07/27/24 1401 BP: 125/73 113/66 BP Location: Left arm Patient Position: Sitting BP Cuff Size: Adult Pulse: 78 Resp: 12 Temp: 97.1 ??F (36.2 ??C) TempSrc: Temporal Weight: 148 lb 6 oz (67.3 kg) Height: 5' 7 (1.702 m) Physical Exam Exam conducted with a inspector general present (Marjorie Snowden MA). HENT: Right Ear: Tympanic membrane and ear canal normal. Left Ear: Tympanic membrane and ear canal normal. Mouth/Throat: Mouth: Mucous membranes are moist. Pharynx: No oropharyngeal exudate or posterior oropharyngeal erythema. Eyes: Pupils: Pupils are equal, round, and reactive to light. Cardiovascular: Rate and Rhythm: Regular rhythm. Pulses: Normal pulses. Heart sounds: Normal heart sounds. No murmur heard. Pulmonary: Breath sounds: Normal breath sounds. Abdominal: General: Bowel sounds are normal. Palpations: Abdomen is soft. Tenderness: There is no abdominal tenderness. Genitourinary: Labia: Right: No lesion. Left: No lesion. Vagina: No vaginal discharge. Cervix: No cervical motion tenderness, discharge, friability, lesion, erythema or cervical bleeding. Uterus: Normal. Adnexa: Right adnexa normal and left adnexa normal. Comments: Increased vaginal contractions during the exam as patient expressed mild discomfort at the beginning of the bimanual exam. She was able to relax her pelvic floor as she felt more comfortable with a smaller speculum and later with the bimanual palpation. Musculoskeletal: General: Normal range of motion. Cervical back: Neck supple. Skin: General: Skin is warm. Neurological: General: No focal deficit present. Mental Status: She is alert and oriented to person, place, and time. Psychiatric: Mood and Affect: Mood normal. Behavior: Behavior normal. ASSESSMENT/PLAN Problem List Items Addressed This Visit Encounter for cervical Pap smear with pelvic exam - Primary Pelvic exam today wnl FU pap smear results/HPV/STI testing and will call back PRN positive results or FU in 3 months Pt feels safe at home no concern for DV/STDs Counseled regarding STI prevention If today's pap smear/co testing is normal next one will be due in 5 years. Relevant Orders Chlamydia/N. Gonorrhoeae RNA, TMA, Urogenitial (Completed) Bacterial Vaginosis POCT Glucose Pap Smear HPV High Risk with Reflex to Subtypes Dyspareunia in female Patient may have vaginitis vs vaginismus I will order pelvic ultrasound Rule out STI Relevant Orders Us Pelvis complete US Pelvis Transvaginal Encounter for preventive health examination Follow Up: Current Outpatient Medications on File Prior to Visit Medication Sig Dispense Refill drospirenone-ethinyl estradiol (Chelsey, Gianvi) 3-0.02 MG tablet TAKE 1 TABLET BY MOUTH EVERY DAY 84 tablet 1 lactase 4500 units tablet Take 1 tablet (4,500 mg) by mouth if needed in the morning, at noon, and at bedtime (abd pain). 90 tablet 0 No current facility-administered medications on file prior to visit. I, Eveline Wagner, am serving as a scribe to document services personally performed by Dr. Jovanna Aguilar, based on the patient's response to questions by provider and provider's statements to me. documented in this encounter Miscellaneous Notes * Patient Education Note - Jovanna Aguilar MD - 07/27/2024 6:41 PM EST Images from the original note were not included. Patient Education Table of Contents Human Papillomavirus (HPV) Vaccine Injection To view videos and all your education online visit, [email or web address] or scan this QR code with your smartphone. Access to this content will in one year. Human Papillomavirus (HPV) Vaccine Injection What is this medication? HUMAN PAPILLOMAVIRUS VACCINE (HYOO [facility]uhn pap [facility] SEEN) reduces the risk of human papillomavirus (HPV). It does not treat HPV. It is still possible to get HPV after receiving this vaccine, but the symptoms may be less severe or not last as long. It works by helping your immune system learn how to fight off a future infection. This medicine may be used for other purposes; ask your health care provider or pharmacist if you have questions. COMMON BRAND NAME(S): Gardasil 9 What should I tell my care team before I take this medication? They need to know if you have any of these conditions: Fever Hemophilia HIV or AIDS Immune system problems Infection Low platelets An unusual reaction to human papillomavirus vaccine, yeast, other vaccines, other medications, foods, dyes, or preservatives or trying to get How should I use this medication? This vaccine is injected into a muscle. It is given by your care team. This vaccine requires 2 or 3 doses to get the full benefit. Set a reminder for when your next dose is due. A copy of the Vaccine Information Statement will be given before each vaccination. Be sure to read this information carefully each time. This sheet may change often. Talk to your care team about the use of this medication in children. While it may be prescribed forchildren as young as 9 years for selected conditions, precautions do apply. Overdosage: If you think you have taken too much of this medicine contact a poison control center or emergency room at once. NOTE: This medicine is only for you. Do not share this medicine with others. What if I miss a dose? Keep appointments for follow-up doses as directed. It is important not to miss your dose. Call yourcare team if you are unable to keep an appointment. What may interact with this medication? Certain medications for arthritis Medications for organ transplant Medications to treat cancer Steroid medications, such as prednisone or cortisone This list may not describe all possible interactions. Give your health care provider a list of all the medicines, herbs, non-prescription drugs, or dietary supplements you use. Also tell them if you smoke, drink alcohol, or use illegal drugs. Some items may interact with your medicine. What should I watch for while using this medication? Visit your care team regularly. Report any side effects to your care team right away. This vaccine, like all vaccines, may not fully protect everyone. What side effects may I notice from receiving this medication? Side effects that you should report to your care team as soon as possible: Allergic reactions?skin rash, itching, hives, swelling of the face, lips, tongue, or throat Feeling faint or lightheaded Side effects that usually do not require medical attention (report these to your care team if they continue or are bothersome): Diarrhea Dizziness Fatigue Fever Headache Nausea Pain, redness, irritation, or bruising at the injection site This list may not describe all possible side effects. Call your doctor for medical advice about side effects. You may report side effects to FDA at 4-782-QDV-7903. Where should I keep my medication? This vaccine is only given by your care team. It will not be stored at home. NOTE: This sheet is a summary. It may not cover all possible information. If you have questions about this medicine, talk to your doctor, pharmacist, or health care provider. ? 2023 [employer]/Gold Standard (2022-12-12) * Patient Education Note - Jovanna Aguilar MD - 07/27/2024 6:41 PM EST Images from the original note were not included. Patient Education Table of Contents HPV and Cancer Information To view videos and all your education online visit, [email or web address] or scan this QR code with your smartphone. Access to this content will in one year. HPV and Cancer Information Human papillomavirus (HPV) is a common virus. There are more than 100 types of HPV. Most cases of HPV infections go away on their own within 2 years, but other HPV infections are considered high-risk and may cause changes in cells that could lead to cancer. You can take steps to avoid HPV infection and to lower your risk of getting cancer. How can HPV affect me? Often, HPV infection does not cause any symptoms. However, HPV can cause warts in the genitals (genital or mucosal HPV)or on the hands or feet (cutaneous or nonmucosal HPV). It can also cause wart-like bumps in the throat. Certain types of genital HPV can also cause cancer, which may include: Cancer of the cervix. Cancer of the vagina. Cancer of the outer female genital area (vulva). Cancer of the anus. Cancer of the tongue, tonsils, and throat. Cancer of the penis. How does HPV spread? HPV spreads easily through direct person to person contact. Genital HPV spreads through sexual contact. You can get HPV from vaginal sex, oral sex, anal sex, or just by touching someone's genitals. Even people who have only one sexual partner may have HPV because that partner may have it. HPV often does not cause symptoms, so most infected people do not know that they have it. What actions can I take to prevent HPV? Take the following steps to help prevent HPV infection: Talk with your health care provider about getting the HPV vaccine. This vaccine protects against the types of HPV that could cause cancer. Limit the number of people you have sex with. Also, avoid having sex with people who have had many sexual partners. Use a new latex or polyurethane condom for each sex act. Talk with your sexual partners about their health. What actions can I take to lower my risk for cancer? Having a healthy lifestyle and taking some preventive steps can help lower your cancer risk, whether or not you have genital HPV. Some steps you can take include: Lifestyle Do not use any products that contain nicotine or tobacco. These products include cigarettes, chewing tobacco, and vaping devices, such as e-cigarettes. If you need help quitting, ask your provider. Eat healthy foods such as fruits, vegetables, and grains. Try to eat at least 5 servings of fruits and vegetables every day. Get regular exercise. Lose weight if you are overweight. Practice good oral hygiene. This includes flossing and brushing your teeth every day. Other preventive steps Get the HPV vaccine as told by your provider. Practice safe sex. Use a protective barrier, such as a condom, every time you have sex. Get tested for sexually transmitted infections (STIs) even if you do not have symptoms of HPV. You may have HPV and not know it. If you are female, get regular Pap and HPV tests. Talk with your provider about how often you need these tests. Pap tests will help identify changes in cells that can lead to cancer. HPV tests will help detect if there is HPV infection in the cells taken from the cervix. Where to find more information Centers for Disease Control and Prevention: cdc.gov National Cancer [place]: cancer.gov [employer]: cancer.org This information is not intended to replace advice given to you by your health care provider. Make sure you discuss any questions you have with your health care provider. Document Released: 2017-03-21 Document Updated: 2023-04-19 Document Reviewed: 2023-03-08 Elsevier Patient Education ? 2023 [employer]. * Assessment & Plan Note - Eveline Wagner MA - 07/27/2024 4:11 PM EST Associated Problem(s): Dyspareunia in female Patient may have vaginitis vs vaginismus I will order pelvic ultrasound Rule out STI * Assessment & Plan Note - Eveline Wagner MA - 07/27/2024 4:09 PM EST Associated Problem(s): Encounter for cervical Pap smear with pelvic exam Pelvic exam today wnl FU pap smear results/HPV/STI testing and will call back PRN positive results or FU in 3 months Pt feels safe at home no concern for DV/STDs Counseled regarding STI prevention If today's pap smear/co testing is normal next one will be due in 5 years. documented in this encounter Plan of Treatment Upcoming Encounters Date Type Department Care Team (Late st Contact Info) Description 09/09/2024 10:30 AM EST Office Visit [facility] [address] [place] [phone] Jovanna Aguilar MD [address] [place] [phone] 09/22/2024 12:00 PM EDT Telemedicine [facility] [address] [place] [phone] Jovanna Aguialr MD [address] [place] [address] [phone] Scheduled Orders Name Type Priority Associated Diagnoses Order Schedule Bacterial Vaginosis Microbiology Routine Encounter for cervical Pap smear with pelvic exam Expected: 07/27/2024 (Approximate), Expires: 07/27/2025 POCT Glucose Point of Care Testing Routine Encounter for cervical Pap smear with pelvic exam Ordered: 07/27/2024 Pelvis complete Imaging Routine Dyspareunia in female Expected: 07/27/2024 (Approximate), Expires: 07/27/2025 US Pelvis Transvaginal Imaging Routine Dyspareunia in female Expected: 07/27/2024 (Approximate), Expires: 07/27/2025 HPV High Risk with Reflex to Subtypes Lab Routine Encounter for cervical Pap smear with pelvic exam Ordered: 07/27/2024 documented as of this encounter Procedures Procedure Name Priority Date/Time Associated Diagnosis Comments CHLAMYDIA/N. GONORRHOEAE RNA, TMA, UROGENITAL Routine 07/27/2024 2:28 PM EST Encounter for cervical Pap smear with pelvic exam PAP SMEAR Routine 07/27/2024 2:28 PM EST Encounter for cervical Pap smear with pelvic exam documented in this encounter Results * Pap Smear (07/27/2024 2:28 PM EST) Swab Cervical swab / Unknown 07/27/2024 2:28 PM EST 07/28/2024 11:20 AM EST [facility] - 08/03/2024 10:18 AM EST ----- ------- Name: Lisa Hernandez ?Age/Sex: 29/F ? : 1995 Unit#: [id number] ?? Attend Dr: ?Re07/27/24 ?Status: PRE REF ? Location: HO.LNP ?Disch: ? ----- ------- SPEC : [id number] ?RECD: 07/28/24 ? STATUS: ??SOUT ? REQ NUM: [id number] ? DIANDRA: 07/27/24-1792 ? SUBM DR: Jovnana Aguilar MD ? ENTERED: ??07/28/24 ?SP TYPE: Pap Smr ?OTHR DR: ? ORDERED: ??Pap Smear ? Interpretation ?? Satisfactory for evaluation. ?? Negative for intraepithelial lesion or malignancy. ? HPV High Risk: ??Negative ? HPV Genotyping 16: ??Negative ?? HPV Genotyping 18: ??Negative ?Clinical Information LMP: 07/21/2024 Previous PAP test: Unknown date/findings ? Material Received ?? ThinPrep-Cervical ----- ------- Signed (signature on file) KIIRT Fuentes (ASCP) 08/03/24 1018 ? ----- ------- ? END OF REPORT ? us Jovanna Aguilar MD LAB CYTOLOGY ORDERABLES Final Result [facility] [address] [place] [phone] * Chlamydia/N. Gonorrhoeae RNA, TMA, Urogenitial (07/27/2024 2:28 PM EST) Pathologist [facility] [place] CT PCR NOT DETECTED Not Detect. [facility] Comment:A not detected test result does [...] psychologicalconsequences. NG PCR NOT DETECTED Not Detect. [facility] Comment:A not detected test result does [...] PM EST 07/27/2024 4:22 PM EST Narrative [facility] - 07/28/2024 5:55 AM EST Vaginal us Jovanna Aguilar MD LAB MICROBIOLOGY - GENER AL ORDERABLES Final Result Performing Organization Address City/State/[facility] Co de Phone Number [facility] [address] [place] [phone] documented in this encounter Visit Diagnoses Diagnosis Encounter for cervical Pap smear with pelvic exam- Primary Dyspareunia in female Encounter for preventive health examination documented in this encounter Care Teams Lunch Truck Driver Relationship Specialty Start Date End Date Jovanna Aguilar MD [address] [place] [phone] PCP - General Family Medicine 06/25/16 documented as of this encounter
--- OUTSIDE RECORDS SUMMARY | 2024-08-14 12:08 | XMS_ITS | Encounter Summary ---
Author Organization [employer] Address [address] [place] [address] Care Team Providers Care Bottom Filler Name Role Phone Jovanna Aguilar MD Primary Care Provider + Reason for Visit * Reason Onset Date Comments Med Refill 07/09/2023 Encounter Details Date Type Department Care Team (Late st Contact Info) Description 07/09/2023 Telephone [facility] [address] [place], [place] [phone] Jovanna Aguilar MD [address] [place] [address] Med Refill Social History Tobacco Use Types Packs/Day Years [...] encounter Miscellaneous Notes * Telephone Encounter - Kinjal Rinaldi LPN - 07/09/2023 2:46 PM EST Medication pended to provider. * Telephone Encounter - Frieda Vyas - 07/09/2023 2:42 PM EST TC from pt requesting medication refill. Medications needing refill : drospirenone-ethinyl estradiol (Don Barbosa) 3-0.02 MG tablet To be sent to: [id number] [place], [place] - [address] [facility] documented in this encounter Plan of Treatment Upcoming Encounters Date Type Department Care Team (Late st Contact Info) Description 09/09/2024 10:30 AM EST Office Visit [facility] [address] [place] [phone] Jovanna Aguilar MD [address] [place] [phone] 09/22/2024 12:00 PM EDT Telemedicine [facility] [address] [place] [address] [phone] Jovanna Aguilar MD [address] [place] [phone] documented as of this encounter Visit Diagnoses Not on filedocumented in this encounter Care Teams Bottom Filler Relationship Specialty Start Date End Date Jovanna Aguilar MD [address] [place] [phone] PCP - General Family Medicine 06/25/16 documented as of this encounter
--- OUTSIDE RECORDS SUMMARY | 2024-08-14 12:08 | XMS_ITS | Encounter Summary ---
Author Organization [employer] Address [address] [place] [address] Care Team Providers Care Hoop Bender Tank Name Role Phone Jovanna Aguilar MD Primary Care Provider + Encounter Details Date Type Department Care Team (Latest Contact Info) Description 07/27/2024 Travel Social History Tobacco Use Types Packs/Day Years [...] AM EDT documented as of this encounter Plan of Treatment Upcoming Encounters Date Type Department Care Team (Late st Contact Info) Description 09/09/2024 10:30 AM EST Office Visit [address] [phone] Jovanna Aguilar MD [address] [place] [address] [phone] 09/22/2024 12:00 PM EDT Telemedicine [address] [phone] Jovanna Aguilar MD [address] [place], [place] [phone] documented as of this encounter Visit Diagnoses Not on filedocumented in this encounter Care Teams Hoop Bender Tank Relationship Specialty Start Date End Date Jovanna Aguilar MD [address] [place] [address] [phone] PCP - General Family Medicine 06/25/16 documented as of this encounter
--- OUTSIDE RECORDS SUMMARY | 2024-08-14 12:08 | XMS_ITS | Encounter Summary ---
Author Organization [employer] Address [address] [facility] 7t [place] [address] Care Team Providers Care Digital Media Sales Consultant Name Role Phone Jovanna Aguilar MD Primary Care Provider + Reason for Visit * Reason Onset Date Comments Results 07/29/2024 Encounter Details Date Type Department Care Team (Late st Contact Info) Description 07/29/2024 Telephone [facility] [address] [place] [address] Cierra Molina, RN [address] [place] [address] Results Social History Tobacco Use Types Packs/Day Years [...] encounter Miscellaneous Notes * Telephone Encounter - Cierra Molina RN - 07/29/2024 8:47 AM EST TC placed to patient [phone] in regards to below message. Patient verbalized understanding anddid not have any concerns. Patient aware diflucan has been sent to the pharmacy. Patient to f/u PRN. ------ Message from Jovanna Aguilar MD sent at 07/28/2024 6:59 PM EST ----- Vaginal swab on 07/27 showed vaginal candidiasis. [...] Description 09/09/2024 10:30 AM EST Office Visit [facility] [address] [place] [phone] Jovanna Aguilar MD [address] [place] [phone] 09/22/2024 12:00 PM EDT Telemedicine [address] [address] Joavnna Aguilar MD [address] [place] [phone] documented as of this encounter Visit Diagnoses Not on filedocumented in this encounter Care Teams Digital Media Sales Consultant Relationship Specialty Start Date End Date Jovanna Aguilar MD [address] [place] [address] [phone] PCP - General Family Medicine 06/25/16 documented as of this encounter
== END 2024-08-14 11:23 | disposition home or self-care (01) ==
LOC: HO.US 11:22
PROVIDERS: PCP Internal Medicine; Visit Provider Internal Medicine
DX: N94.10 Unspecified dyspareunia (principal)
CPT/HCPCS: 76830; 76856

== ENCOUNTER → 2024-08-14 11:23 | Outpatient (BNV) | payer OTHER, SELFPAY | PROVIDERS: PCP Internal Medicine; Visit Provider Radiology Diagnostic Radiology | DX: N94.10 Unspecified dyspareunia (principal); N89.8 Other specified noninflammatory disorders of vagina | CPT/HCPCS: 76830; 76856 ==

== ENCOUNTER 2024-11-19 09:25 | Outpatient (AMB) | payer OTHER, SELFPAY ==
[2024-11-19 09:28] VITALS: BP 132/70; PULSE 89; O2SAT 100; BMI 24.6
--- NOTE | 2024-11-19 09:30 | A.OFFVIS_ITS ---
Vital Signs 11/19/24 09:28 Height 5 ft 7 in Weight 157 lb BMI 24.6 BP 132/70 Blood Pressure Location Rt brachial Position Sitting Pulse 89 Pulse Source Pulse Oximeter Pulse Oximetry (%) 100 Oxygen Delivery Method Room Air Intake Visit Reasons: Dyspareunia Allergies No Known Allergies [No Known Allergies*] Allergy (Verified 11/19/24 09:30) Medication List - Last Reconciled 11/19/24 by Patty Kay CNM bacitracin 1 appl topical TID 4 days drospirenone-ethinyl estradiol 3-0.02 mg 1 tab PO DAILY ibuprofen 600 mg PO TID PRN Is last menstrual period known: Yes Last menstrual period: 11/02/24 Post menopausal: No Patient : No HPI HPI Dyspareunia: Details: Is referral from her PCC at [facility] who she normally sees for all her healthcare and manager cosmetic care 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 She said her primary sent her for an ultrasound and they saw some scarring of some kind on her vaginal wall. She has been recently examined and had full testing for STIs in the only thing that showed up was mild yeast and she was given Diflucan for that. Because of her uniform times and the deman ds of the job there were times when she can become by this what to eat and yeast can be a problem and we did discuss whether not that was the issue. She is in a monogamous situation has no concerns whatsoever about STIs and declines further testing today. She is on control pills and has been for years she does get a very light. Sometimes it is can be very dark but it is very light and hali rt. When she was in the [employer] she was working out a lot and even lost weight and did not get a period for a few months. She does thinks she will want to have a baby within the next couple of use and she was somewhat concerned about how she would stop control pills and plan for .. [facility] Medical History No pertinent past medical history Social History Alcohol intake: never Patient Tobacco Use Status: Never used Tobacco Female Reproductive History Menstrual Age of Menarche: 14 Duration of menses: 3-5 days Date of last menstrual period: 11/02/24 control method: pills Total pregnancies: 0 Date of last pap smear: 07/28/14 History of abnormal pap smear: No History of STI: No Physical Exam Vital Signs: Last Vital Signs Pulse 89 11/19/24 09:28 BP 132/70 11/19/24 09:28 Pulse Ox 100 11/19/24 09:28 Oxygen Delivery Method Room Air 11/19/24 09:28 BMI result Body Mass Index 24.6 Other: Normal external exam vagina is pink and moist cervix nulliparous pink smooth healthy appearing with normal clear and white scant mucus does not appear yeast eat today patient declined testing cervix is long close thick mobile nontender uterus is midposition tilting slightly retroverted mobile and nontender adnexa nontender good tone with Kegel. Patient said she had had vasovagal responses with previous pelvic exams but she did okay today. External Female Exam: normal external appearance Speculum Exam - Vagina: normal appearance of the vagina and normal vaginal disch arge Speculum Exam - Cervix: normal appearance of the cervix Bimanual exam- vagina & uterus: normal bimanual exam, uterine size normal, consistency normal, uterine mobility normal, uterine shape normal and non-tender Bimanual Exam- Adnexa, other: normal adnexae, no masses and No adnexal tenderness Results Reviewed Results Reviewed: Name: Lisa Hernandez Age/Sex: 29/F Attending: : 1995 Submitted by: Jovanna Aguilar MD Copies to: MR #: [id number] Status: PRE REF Collected: 07/27/24 Location: [facility] Received: 07/28/24 Interpretation Satisfactory for evaluation. Negative for intraepithelial lesion or malignancy. HPV High Risk: Negative HPV Genotyping 16: Negative HPV Genotyping 18: Negative Clinical Information LMP: 07/21/2024 Previous PAP test: Unknown date/findings Material Received ThinPrep-Cervical Electronically Signed By: KIRIT Fuentes (ASCP) 08/03/24 1018 As of May 06, 2024, the technical services to include automated prescreening performed by the ThinPrep Imaging System, PAP screening and HPV testing will be performed at [facility] (CLIA #[id number]), [address] [place] [address]. Testing for HPV was performed using the [employer] Systems[employer] 6800 system. The presence of HPV in the female genital tract is associated with a number of diseases, including cervical car cinoma. The HPV DNA high risk pool tests for HPV 31, 33, 35, 39, 45, 51, 52, 56, 58, 59, 66 and 68. The testing for HPV 16 and 18 genotypes has also been performed. A positive result indicates detection of nucleic acid sequences from one or more subtypes, whereas a negative result indicates such sequences were not detected. All professional services are performed by [facility] ([address] [place] [address]; ; CLIA #[id number]). The PAP Test is a screening procedure with the inherent possibility of both false negative and false positive results. Results should be interpreted in the context of historic and current clinical findings. Reliability of the PAP Test is enhanced by performing the test on a regular repetitive basis. Patient: Lisa Hernandez Age/Sex: 29/F MR#: [id number] Page 1 of 1 Assessment & Plan Assessment & Plan (1) Dyspareunia in female: Comment: Not present at the moment and not reproduce during the exam. Positive the possibility that it might be related to a mild yeast infection when she does experience it. Code(s): N94.10 - Unspecified dyspareunia Category: Medical (2) Yeast infection of the vagina: Comment: Not present today but her uniform and work requirements put her at risk. Teaching done and prescription for Diflucan sent for p.r.n. use. Code(s): B37.31 - Acute candidiasis of vulva and vagina Category: Medical (3) Counseling for control, oral contraceptives: Comment: Patient is on OCPs for many years via her primary care provider discussed use and discontinue she desires childbearing. Code(s): Z30. - Encounter for other general counseling and advice on contraception Category: Medical Plan Reviewed all her past labs Paps and pelvic ultrasound that showed some calcification deposits in the vaginal sidewalls unable to see anything other than normal rugated vaginal tissue that appeared healthy and moist and normal. no swelling or abrasion palpable. patient believes it is certainly possible she might have had intercourse that might of been rougher than other times, in the past, and that could account for the calcifications seen on the ultrasound. in any case no abnormality seen today or palpated today. In addition no yeast evident, but her uniform and work requirements certainly put her at risk and so teaching done about allowing air to her vagina when she is off duty and able to take her uniform off and prescription for Diflucan sent her pharmacy for p.r.n. use should she need it. She has already stopping the use a panty liners and aiming towards cotton. Medications: New fluconazole may repeat second dose 72 hrs after first dose if symptoms persist 150 mg PO Q3D 2 tabs 2RF 2 doses Coding Level of Care Code New Pt Level 3 (10084) Diagnoses Dyspareunia in female N94.10 Yeast infection of the vagina B37.31 Counseling for control, oral contraceptives Z
--- OUTSIDE RECORDS SUMMARY | 2024-11-19 10:03 | XMS_ITS | Encounter Summary ---
Author Organization [employer] [facility] Address [address] [facility] 7t [place] [address] Care Team Providers Care Android Architect Name Role Phone Jovanna Aguilar MD Primary Care Provider + Reason for Visit * Reason Comments Med Refill Encounter Details Date Type Department Care Team (Late st Contact Info) Description 08/08/2022 Refill [facility] [address] [place], [place] [phone] Jovanna Aguilar MD [address] [place], [place] [phone] Encounter for surveillance of other contraceptive Social [...] as of this encounter Plan of Treatment Not on file documented as of this encounter Visit Diagnoses Diagnosis Encounter for surveillance of other contraceptive documented in this encounter Care Teams Android Architect Relationship Specialty Start Date End Date Jovanna Aguilar MD [address] [place], [place] [phone] PCP - General Family Medicine 06/25/16 documented as of this encounter
--- OUTSIDE RECORDS SUMMARY | 2024-11-19 10:03 | XMS_ITS | Encounter Summary ---
Author Organization [employer] Address [address] [facility] [address] [place] [address] Care Team Providers Care Attending Anesthesiologist Name Role Phone Jovanna Aguilar MD Primary Care Provider + Encounter Details Date Type Department Care Team (Late st Contact Info) Description 11/11/2024 Orders Only [facility] [address] [place], [place] [phone] Tiff Lund Social History Tobacco Use Types Packs/Day Years [...] Date Recorded Patient Health Questionnaire-2 Score 0 11/06/2024 Internet Access Answer Date Recorded Internet Access Q1 Yes 08/26/2024 Internet Access Q2 Not on file 08/26/2024 Comments No Sex and Gender Information Value Date Recorded Sex Assigned at Female 05/14/2022 10:16 AM EDT Legal Sex Female 10:16 AM EDT Gender Identity Female 05/14/2022 10:16 AM EDT Sexual Orientation Bisexual 05/14/2022 10 :16 AM EDT documented as of this encounter Plan of Treatment Not on file documented as of this encounter Procedures Procedure Name Priority Date/Time Associated Diagnosis Comments HPV MRNA E6/E7 REFLEX TO HPV 16, 18/45 Routine 07/27/2024 12:00 AM EST documented in this encounter Results * HPV mRNA E6/E7 w/Reflex to HPV Genotypes 16, 18/45 (07/27/2024 12:00 AM EST) us Historical Provider LAB CYTOLOGY ORDERABLES F inal Result documented in this encounter Visit Diagnoses Not on filedocumented in this encounter Care Teams Attending Anesthesiologist Relationship Specialty Start Date End Date Jovanna Aguilar MD [address] [place] [phone] PCP - General Family Medicine 06/25/16 documented as of this encounter
--- OUTSIDE RECORDS SUMMARY | 2024-11-19 10:04 | XMS_ITS | Encounter Summary ---
Author Organization [employer] Address [address] [facility] [address]t [place] [address] Care Team Providers Care Clothing Man Name Role Phone Jovanna Aguilar MD Primary Care Provider + Reason for Visit * Reason Onset Date Comments Med Refill 07/09/2023 Encounter Details Date Type Department Care Team ([facility] st Contact Info) Description 07/09/2023 Telephone [facility] [address] [place] [address] Jovanna Aguilar MD [address] [place] [address] Med Refill Social History Tobacco Use Types [...] 3-0.02 MG tablet To be sent to: [facility][id number], [place] - [address] [facility] documented in this encounter Plan of Treatment Not on file documented as of this encounter Visit Diagnoses Not on filedocumented in this encounter Care Teams Clothing Man Relationship Specialty Start Date End Date Jovanna Aguilar MD [address] [place] [address] PCP - General Family Medicine 06/25/16 documented as of this encounter
--- OUTSIDE RECORDS SUMMARY | 2024-11-19 10:04 | XMS_ITS | Encounter Summary ---
Author Organization [employer] Address [address] [facility] [address] [place] [address] Care Team Providers Care Java Xml Developer Name Role Phone Jovanna Aguilar MD Primary Care Provider + Reason for Visit * Reason Onset Date Comments Appointment Request 05/12/2024 Encounter Details Date Type Department Care Team ([facility] st Contact Info) Description 05/12/2024 Telephone [facility] [address] [place] [address] Jovanna Aguilar MD [address] [place] [address] Appointment Request Social History Tobacco Use Types Packs/Day Years Used Date Smoking Tobacco: Never Smokeless Tobacco: Never Alcohol Use Standard Drinks/Week Comments Never 0 (1 standard drink = 0.6 oz pur e alcohol) Housing Stability Answer Date Recorded What is your housing situation today? I have diananan myrick 08/28/[address] you [...] pt requesting to reschedule pap smear but signwriter found nothing availability. Please contact pt at [phone]. documented in this encounter Plan of Treatment Not on file documented as of this encounter Visit Diagnoses Not on filedocumented in this encounter Care Teams Java Xml Developer Relationship Specialty Start Date End Date Jovanna Aguilar MD [address] [place] [address] PCP - General Family Medicine 06/25/16 documented as of this encounter
--- OUTSIDE RECORDS SUMMARY | 2024-11-19 10:04 | XMS_ITS | Clinical Summary ---
Author Organization [facility] Address [address] [facility] [facility] [address] [place] [address] Care Team Providers Care Flux Tube Attendant Name Role Phone Jovanna Aguilar MD Primary Care Provider + Allergies No known active allergies Medications lactase 4500 units tablet Take 1 tablet (4,500 mg) by mouth if needed in the morning, at noon, and at bedtime (abd pain). 90 tablet 09/09/19 24 Active drospirenone-ethi nyl estradiol (Chelsey, Gianvi) 3-0.02 MG tabletIndications :Encounter for surveillance of other contraceptive TAKE 1 TABLET BY MOUTH EVERY DAY 84 tablet 1 10/28/19 25 Active drospirenone-ethi nyl estradiol (Chelsey, Gianvi) 3-0.02 MG tabletIndications :Encounter for surveillance of other contraceptive TAKE 1 TABLET BY MOUTH EVERY DAY 84 tablet 1 05/19/20 24 025 Discontinued Active Problems Problem Noted Date Diagnosed Date [...] Dyspareunia in female 07/27/2024 Assessment & Plan (09/22/2024 1:40 PM EDT): Most likely related to recurrent vaginal candidiasis, unclear if related to vaginal wall calcification. Assessment & Plan (07/28/2024 6:55 PM EST): Patient may have vaginitis vs vaginismus I will order pelvic ultrasound Rule out STI Not immune to measles 10/31/2023 Assessment & Plan (11/06/2024 2:35 PM EDT): Declined MMR booster. We discussed about the risk of having a hindered immunity against measles that may or may not be increased by infection, however it may be a risk of complicated measles if vaccination is not up-to-date. Advised to definitely have the booster in the future, if measles was declared again in endemic disease. Assessment & Plan (10/31/2023 9:18 AM EDT): Results of MMR discussed w/ pt and advised to get MMR booster OBDULIA prior to starting [employer] Fu PRN Fu within 1 yr or earlier PRN Pt is scheduled for a PAP Smear w/ me in April Encounter for preventive health examination 08/16 Assessment & Plan (11/06/2024 2:36 PM EDT): Discussed with patient re increase fresh fruit and vegetable intake. Counseled re moderate exercise as tolerated, up to 20min/d Patient feels safe at home. PAP smear: UTD, next one due on 2029 Eye exam: Overdue, advised to schedule an appointment at the eye and LASIK clinic. Lipids/FBS: UTD, next 1 due on 2025 Vaccinations: Declined MMR and COVID booster, all other health musicians are up-to-date. Advise to have influenza vaccination every year during the fall Dental visit: UTD, next 1 due on I had that information and forms regarding HCP, patient may bring them to HIM once they are filled and signed Assessment & Plan (09/11/2023 1:36 PM EST): [...] malignant. 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 Take Diflucan weekly x 3 weeks. Encounters Date Type Department Care Team Description 11/11/2024 Orders Only [facility] PEDS [address] [place] [address] Tiff Lund 11/06/2024 9:15 AM EDT Office Visit [facility] MEDICINE [address], [place] [phone] Jovanna Aguilar MD Encounter for preventive health examination (Primary Dx); Visual impairment; Not immune to measles 11/06/2024 Travel 11/03/[address] [address] Jovanna Aguilar MD Chart prep 10/28/[address] [address] Jovanna Aguilar MD Chart prep 10/28/2024 Patient Outreach [address] [phone] Jovanna Aguilar MD Pre-visit Planning (SDOH screening completed on 08/26/2024) 10/26/[address] [address] Jovanna Aguilar MD Encounter for surveillance of other contraceptive 09/22/2024 12:00 PM EDT Telemedicine [address] [address] Jovanna Aguilar MD Dyspareunia in female (Primary Dx); Vaginal discharge 09/22/2024 Travel 09/04/[address] [address] Jovanna Aguilar MD Chart prep 08/26/2024 Patient Outreach [address] [address] Jovanna Aguilar MD Pre-visit Planning (SDOH screening negative and tobacco screening negative) from Last 3 Months Immunizations Name Administration [...] Sign Reading Time Taken Comments Blood Pressure 121/68 11/06/2024 9:02 AM EDT Pulse 82 11/06/2024 9:02 AM EDT Temperature 36.8 ??C (98.3 ??F) 11/06/2024 9:02 AM ED T Respiratory Rate 16 11/06/2024 9:02 AM EDT Oxygen Saturation 98% 11/06/2024 9:02 AM EDT Inhaled Oxygen Concentration - - Weight 70 kg (154 lb 6 oz) 11/06/2024 9:02 AM ED T Height 170.2 cm (5' 7 ) 11/06/2024 9:02 AM EDT Body Mass Index 24.18 11/06/2024 9:02 AM EDT Plan of Treatment Health Maintenance Due Date Last Done Comments HIV Screening 1995 Family Planning (PISQ) 02/02/2011 COVID-19 Vaccine ( season) 2024 01/23/2021, 12/07/2020 Influenza Vaccine (#1) 2024 4, 04/27/2013, 04/14/2012 SDOH Screening 08/26/2025 08/26/2024 Alcohol/Substance Use Screening 11/06/2025 11/06/2024 Depression Screening 11/06/2025 11/06/2024, 11/07/19 Tobacco Screening 11/06/2025 11/06/2024 HPV/Cotest 07/27/2027 07/27/2024 Pap Smear 07/27/2029 07/27/2024, 05/04/2021 DTaP/Tdap/Td [...] for cervical Pap smear with pelvic exam HPV MRNA E6/E7 REFLEX TO HPV 16, 18/45 Routine 07/27/2024 12:00 AM EST HEPATITIS PANEL, GENERAL Routine 09/11/2023 10:25 AM EST Encounter for preventive health examination from Last 3 Months or Most Recently Relevant to Health Maintenance Results * Pap Smear (07/27/2024 2:28 PM EST) Swab Cervical swab / Unknown 07/27/2024 2:28 PM EST 07/28/2024 11:20 AM EST [facility] - 08/03/2024 10:18 AM EST ----- ------- Name: Lisa Hernandez ?Age/Sex: 29/F ? : 1995 Unit#: [id number] ?? Attend : ?Re07/27/24 ?Status: PRE REF ? Location: HO.LNP ?Disch: ? ----- ------- SPEC : [id number] ?RECD: 07/28/24 ? STATUS: ??SOUT ? REQ NUM: [id number] ? DIANDRA: 07/27/24 ? SUBM DR: Jovanna [...] ------- Signed (signature on file) KIRIT Fuentes (ASC) 08/03/24 1018 ? ----- ------- ? END OF REPORT ? Jovanna Aguilar MD LAB CYTOLOGY ORDERABLES Final Result [facility] [address] [place] [address] [phone] * HPV mRNA E6/E7 w/Reflex to HPV Genotypes 16, 18/45 (07/27/2024 12:00 AM EST) Historical Provider LAB CYTOLOGY ORDERABLES F inal Result * Hepatitis Panel, General (09/11/2023 10:25 AM EST) Hepatitis A IgM Nonreactive Nonreactive [facility] Comment:IgM antibodies to GIVENS V not detected; does not exclude earlyacute or recovered HAV infection. ~Hepatitis B Surface Antibody REACTIVE Nonreactive [facility] Comment:REACTIVE: > 11.99 mI U/mL Hepatitis B Core Antibody Nonreactive Nonreactive [facility] Hepatitis C Antibody Nonreactive Nonreactive [facility] Comment:Antibodies to HCV no t detected; does not exclude early acuteHCV infection. Hepatitis B Surface Ag Negative Negative [facility] Blood 09/11/2023 10:2 5 AM EST 09/11/2023 10:25 AM EST Jovanna Aguilar MD LAB BLOOD ORDERABLES Fin al Result [facility] [address] [place] [address] [phone] from Last 3 Months or Most Recently Relevant to Health Maintenance Insurance [facility] , [address] [place] [address] Care Teams Flux Tube Attendant Relationship Specialty Start Date End Date Jovanna Aguilar MD [address] [place] [phone] PCP - General Family Medicine 06/25/16
== END 2024-11-19 11:00 | disposition home or self-care (01) ==
LOC: HO.HWSM 09:25
PROVIDERS: PCP Internal Medicine; Visit Provider Advanced Practice Midwife
DX: N94.10 Unspecified dyspareunia (principal); B37.31 Acute candidiasis of vulva and vagina; Z30.09 Encounter for other general counseling and advice on contraception
CPT/HCPCS: 99203

== ENCOUNTER → 2024-11-19 09:25 | Outpatient (BNVA) | payer OTHER, SELFPAY | PROVIDERS: PCP Internal Medicine; Visit Provider Advanced Practice Midwife ==

== ENCOUNTER 2025-01-11 18:13 | Outpatient (REF) | payer OTHER, SELFPAY ==
[2025-01-11 20:57] LABS: Bacterial Vaginosis PCR NEGATIVE (Negative); Candida Group PCR NOT DETECTED (Not Detect); Candida glab krusei PCR NOT DETECTED (Not Detect); Trichomonas vaginalis PCR NOT DETECTED (Not Detect)
[2025-01-11 21:46] LABS: CT PCR NOT DETECTED (Not Detect.); NG PCR NOT DETECTED (Not Detect.)
== END 2025-01-11 18:14 | disposition home or self-care (01) ==
LOC: HO.HHCLNP 18:13
PROVIDERS: Visit Provider Family Medicine
DX: R30.0 Dysuria (principal); N89.8 Other specified noninflammatory disorders of vagina
CPT/HCPCS: 81515; 87086; 87491; 87591